=== PATIENT | female | born 1955 | race Hispanic/Latino ===

== ENCOUNTER 2018-06-08 02:58 | Inpatient (IN) | payer MEDICARE, OTHER ==
[~2018-06-08] VITALS: Ht 162.6 cm; Wt 68.0 kg
[2018-06-08] MEDS ORDERED: KETOROLAC TROMETHAMINE 30 MG/ML VIAL IV STA (03:24)
[2018-06-08 03:55] LABS: BASOPHILS % 0.2 % (0.0-1.0); EOSINOPHILS # (AUTO) 0.3 (0.0-0.4); LYMPHOCYTES # (AUTO) 1.7 (1.0-3.2); LYMPHOCYTES % 19.6 % (18.0-39.1); MEAN CORPUSCULAR HEMOGLOBIN 30.6 pg (28-32); MEAN CORPUSCULAR HGB CONC 32.4 g/dL (31-35); MEAN CORPUSCULAR VOLUME 94.4 fL (81-99); MONOCYTES # (AUTO) 0.6 (0.2-0.8); MONOCYTES % 6.7 % (4.4-11.3); NEUTROPHILS # (AUTO) 5.9 (2.1-6.9); NEUTROPHILS % 70.1 % (38.7-80.0); PLATELET COUNT 255 x10e3/uL (140-360); RED CELL DISTRIBUTION WIDTH 17.8 % (11.7-14.4)
[2018-06-08] MEDS ORDERED: METOPROLOL TART25 MG PO (03:58)
[2018-06-08] MEDS ORDERED: CLOPIDOGREL75 MG PO (03:58)
[2018-06-08] MEDS ORDERED: SERTRALINE HCL50 MG PO (03:59)
[2018-06-08 04:04] LABS: INR 1.19; PARTIAL THROMBOPLASTIN TIME 32.3 seconds (23.8-35.5); PROTHROMBIN TIME 14.2 seconds (11.9-14.5)
[2018-06-08 04:12] LABS: ALBUMIN 3.1 g/dL (3.5-5.0); ALBUMIN/GLOBULIN RATIO 0.6 (0.8-2.0); ANION GAP 25.7 mmol/L (8-16); CALCIUM 8.3 mg/dL (8.4-10.2); CREATININE, SERUM 7.38 mg/dL (0.57-1.11); MAGNESIUM 2.3 MG/DL (1.3-2.1)
[2018-06-08 04:13] LABS: POTASSIUM 5.7 mmol/L (3.5-5.1)
[2018-06-08 04:19] LABS: CREATINE KINASE MB 3.2 ng/mL (0-5.0)
[2018-06-08 04:20] LABS: B-TYPE NATRIURETIC PEPTIDE2 2811.7 pg/mL (0-100)
--- NOTE | 2018-06-08 04:22 | Diagnostic Imaging Report ---
History: Neck pain, weakness, no known trauma Comparison studies: None Technique: Axial images were obtained through the cervical region.. Coronal and sagittal images reconstructed from the axial data.. Intravenous contrast: None Findings: Fractures: None. Soft tissues: No gross abnormalities. Atlantoaxial articulation: Intact. Alignment: Straightening of the usual lordosis is probably positional. No scoliosis. Cervicomedullary junction: No abnormalities. The foramen magnum is patent. Vertebrae: No infection or neoplasm. Disc spaces: Relatively well-preserved . Facet: Degenerated throughout the cervical region but worse on the left at C3-4, bilaterally at C4-5, left at C5-6 and right at C6-7. Spinal canal: No significant spinal canal stenosis. Foramina: Moderate stenosis on the left at C3-4, C5-6 and mild right at C6-7 due to facet and uncovertebral arthrosis. 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 Atherosclerotic calcifications in the carotid bulbs. IMPRESSION: 1. Degenerative changes of the facets, worse left at C3-4, bilaterally at C4-5, left at C5-6 and right at C6-7. 2. Moderate foraminal stenosis (left at C3-4 and bilaterally at C5-6) is due to facet and uncoarthrosis. 3. Otherwise, no additional significant abnormalities. 4. No significant spinal canal stenosis. No disc herniations. Signed by: Dr. Greg Veras M.D. on 06/08/2018 4:18 AM
--- NOTE | 2018-06-08 04:28 | Diagnostic Imaging Report ---
EXAM: CHEST 2 VIEWS, PA and lateral INDICATION: Weakness, shortness of breath COMPARISON: None FINDINGS: LINES/TUBES: None LUNGS: Diffuse bilateral pulmonary edema. PLEURA: Trace bilateral pleural effusions. HEART AND MEDIASTINUM: Obscured BONES AND SOFT TISSUES: No acute findings. IMPRESSION: Diffuse bilateral pulmonary edema. Signed by: Dr. Nora Collins M.D. on 06/08/2018 4:25 AM
[2018-06-08] MEDS ORDERED: PANTOPRAZOLE 40 MG 10ML VIAL IV STA (04:42)
[2018-06-08] MEDS ORDERED: NITROGLYCERIN 2% OINT 1 GM PKT TOP ONE (04:45)
[2018-06-08] MEDS ORDERED: FUROSEMIDE INJ 10 MG/ML 4 ML VIAL IV ONE (04:45)
[2018-06-08] MEDS ORDERED: MORPHINE SULFATE 2 MG/ML SYR IV STA (05:03)
[2018-06-08] MEDS ORDERED: ONDANSETRON HCL INJ 2 MG/ML VIAL IV STA (05:03)
[2018-06-08] MEDS ORDERED: DEXTROSE 50% SYRINGE 50 ML IV PRN (05:15)
[2018-06-08] MEDS ORDERED: SOD POLYSTYRENE SULFONATE SUSP 15 GM/60 ML BTL PO ONE (05:15)
[2018-06-08] MEDS ORDERED: LACTULOSE SYRUP 20 GM/30 ML UDC PO ONE (05:15)
[2018-06-08] MEDS ORDERED: MORPHINE SULFATE 2 MG/ML SYR IV PRN ×2 (05:15→12:30)
[2018-06-08] MEDS ORDERED: HYDRALAZINE HCL 20 MG/ML VIAL IV PRN (05:15)
[2018-06-08] MEDS ORDERED: ONDANSETRON HCL INJ 2 MG/ML VIAL IV PRN ×2 (05:15→12:30)
[2018-06-08] MEDS ORDERED: HYDRALAZINE HCL 20 MG/ML VIAL IV STA ×2 (05:23→05:25)
[2018-06-08 05:28] LABS: AMYLASE 113 U/L (25-125); LIPASE 68 U/L (8-78)
[2018-06-08] MEDS ORDERED: NITROGLYCERIN 2% OINT 1 GM PKT TOP SCH (06:00)
[2018-06-08 06:09] LABS: ABG HCO3 24 mmol/L (23-28); ABG PCO2 37 mmHg (41-51); ABG PH 7.39 (7.31-7.41); ABG PO2 206 mmHg (80-105)
[2018-06-08] MEDS ORDERED: DEXTROSE 50% SYRINGE 50 ML IV STA (06:21)
[2018-06-08] MEDS ORDERED: INSULIN REGULAR, HUMAN 100 UNIT/1 ML 3ML VIAL IV STA (06:21)
[2018-06-08] MEDS: INSULIN REGULAR, HUMAN 100 UNIT/1 ML 3ML VIAL SQ SCH ×4 (07:33→20:15)
[2018-06-08] MEDS ORDERED: NITROGLYCERIN 2% OINT 1 GM PKT ONE (11:50)
[2018-06-08 11:53] LABS: CREATINE KINASE MB 3.1 ng/mL (0-5.0)
[2018-06-08 15:00] VITALS: BP 168/71
[2018-06-08 15:19] VITALS: BP 176/78
[2018-06-08 16:13] VITALS: BP 176/78
[2018-06-08] MEDS: METOPROLOL TARTRATE 25 MG TAB PO SCH (17:38)
[2018-06-08] MEDS: NITROGLYCERIN 2% OINT 1 GM PKT TOP SCH ×2 (17:39→23:54)
[2018-06-08 19:48] LABS: CREATINE KINASE MB 2.1 ng/mL (0-5.0)
[2018-06-08 20:17] VITALS: BP 160/78
[2018-06-08 20:20] VITALS: BP 160/78
--- NOTE | 2018-06-08 21:12 | Consultation ---
DATE OF CONSULTATION: June 08, 2018 PULMONARY/CRITICAL CARE CONSULTATION CHIEF COMPLAINT: Pulmonary edema and dyspnea in the setting of renal failure. HISTORY OF PRESENT ILLNESS: The patient is a 62-year-old woman. She has a history of renal failure. Apparently, she missed dialysis and started having more difficulty breathing. She subsequently came to the emergency department, and was found to have an elevated potassium along pulmonary edema. She required BiPAP and emergent dialysis. After receiving the BiPAP and dialysis, she felt better. She has now been switched back to a nasal cannula. PAST MEDICAL HISTORY 1. End-stage renal disease. 2. Hypertension. 3. Diabetes. PAST SURGICAL HISTORY: Status post placement of an AV fistula. SOCIAL HISTORY: The patient never smoked. She is not using any drugs or alcohol. FAMILY HISTORY: Noncontributory. REVIEW OF SYSTEMS: She has no fever or headache. She is not having any neck pain. There is no chest pain. She did have trouble breathing, but has improved. She is not having abdominal pain. There is no nausea or vomiting. She has no leg edema. PHYSICAL EXAMINATION VITALS: The patient is afebrile. The blood pressure is 147/68. She is afebrile. HEENT: Shows no facial swelling or erythema. The nasal mucosa is normal. The oropharynx is normal. LYMPHATIC: Shows no submandibular, cervical or supraclavicular adenopathy. CARDIAC: Reveals a regular rate and rhythm with a normal S1 and S2. There are no murmurs or rubs. LUNGS: Auscultation of the lungs reveals crackles in both lung joe. There is no wheezing. ABDOMEN: Soft and nontender. There is no rebound or guarding. EXTREMITIES: Shows no leg edema or calf tenderness. There is no cyanosis or clubbing. SKIN: Shows no rashes. NEUROLOGIC: Shows no focal abnormalities. IMPRESSION 1. Acute respiratory failure secondary to pulmonary edema. 2. End-stage renal disease with acute exacerbation due to missed dialysis. PLAN 1. Place the patient back on oxygen. 2. Advance diet. 3. Physical therapy. 4. Resume dialysis as required by nephrology. Job#: [id number] [place]
[2018-06-09] VITALS (8 sets, daily range): BP systolic 149–181; BP diastolic 66–84
--- NOTE | 2018-06-09 03:01 | Consultation ---
DATE OF CONSULTATION: June 08, 2018 Seen in the emergency room. Ms. Hagan is known to the nephrology service. She is a 62-year-old female with an underlying history of end-stage renal disease, hypertension, type 2 diabetes. She missed her dialysis. Presented with shortness of breath and she had some chest pains as well. Initial blood pressure is in the 200s. Dr. Zambrano managed the blood upper with nitropaste! I suggested some hydralazine IV and Kayexalate, but before they could even give Kayexalate, the patient developed further respiratory distress and had to be placed on BiPAP. Dialysis nurse currently at bedside and about to initiate dialysis. Patient on BiPAP, but comfortable. Does not appear to be in any dyspnea. She does appear weak and tired. She shakes her head no to any chest pain, difficulty breathing, fever, or chills. Labs show potassium 5.7, bicarbonate 19, creatinine 7.38 with a BNP of 2811. White count 8.4, hemoglobin 11. Had a blood gas done of 7.39/206/100% FIO2. MEDICATIONS: Patient received 1 dose of Toradol. She is on regular insulin. She is on nitropaste 1-inch q.6 h., morphine p.r.n., lactulose p.r.n. Received 1 dose of Lasix. Received 1 dose of hydralazine 20 mg IV. PHYSICAL EXAMINATION GENERAL: Patient on BiPAP and laying supine. Tachypneic but no dyspnea. VITALS: Has a blood pressure of 177/77, pulse rate 76, afebrile, oxygen saturation 98% on BiPAP. HEAD AND NECK: Conjunctivae appears slightly pale. Oral mucosa could not be examined because of BiPAP. Neck veins are distended. LUNGS: Shows rales in the right lower zone more than the left, but definitely bibasilar. HEART: A 2-3/6 ejection systolic murmur heard over the left sternal border. No rubs or gallop. ABDOMEN: Otherwise soft and nontender. LOWER EXTREMITY: No edema. IMPRESSION AND PLAN 1. Hyperkalemia. 2. Metabolic acidosis. 3. Fluid overload. 4. Congestive heart failure. 5. Relative noncompliance. 6. High risk dialysis and patient has missed dialysis. Dialysis nurse at bedside. 7. Accelerated hypertension. PLAN: Patient will be started on dialysis within the next few minutes. Aim is to ultrafilter as safely as possible 4-5 L. She will be on a 2K, 40 bicarb bath. Please see orders. Job#: [id number] [place]
[2018-06-09] MEDS: HYDRALAZINE HCL 20 MG/ML VIAL IV PRN (04:38)
[2018-06-09 05:18] LABS: BASOPHILS % 0.3 % (0.0-1.0); EOSINOPHILS # (AUTO) 0.2 (0.0-0.4); EOSINOPHILS % 3.1 % (0.0-6.0); HEMATOCRIT 29.8 % (34.2-44.1); HEMOGLOBIN 9.4 g/dL (12.0-16.0); LYMPHOCYTES # (AUTO) 1.2 (1.0-3.2); LYMPHOCYTES % 19.7 % (18.0-39.1); MEAN CORPUSCULAR HEMOGLOBIN 30.4 pg (28-32); MEAN CORPUSCULAR HGB CONC 31.5 g/dL (31-35); MEAN CORPUSCULAR VOLUME 96.4 fL (81-99); MONOCYTES # (AUTO) 0.5 (0.2-0.8); MONOCYTES % 8.4 % (4.4-11.3); NEUTROPHILS # (AUTO) 4.2 (2.1-6.9); NEUTROPHILS % 68.3 % (38.7-80.0); PLATELET COUNT 195 x10e3/uL (140-360); RED BLOOD COUNT 3.09 x10e6/uL (3.6-5.1)
[2018-06-09] MEDS: NITROGLYCERIN 2% OINT 1 GM PKT TOP SCH ×3 (05:25→18:00)
[2018-06-09 05:38] LABS: ALBUMIN 2.5 g/dL (3.5-5.0); ALBUMIN/GLOBULIN RATIO 0.6 (0.8-2.0); ANION GAP 18.1 mmol/L (8-16); CALCIUM 8.3 mg/dL (8.4-10.2); CHOL/HDL RATIO 2.8 (3.0-3.6); CREATININE, SERUM 4.45 mg/dL (0.57-1.11); POTASSIUM 5.1 mmol/L (3.5-5.1)
[2018-06-09] MEDS: INSULIN REGULAR, HUMAN 100 UNIT/1 ML 3ML VIAL SQ SCH ×5 (07:30→20:00)
[2018-06-09] MEDS: CLOPIDOGREL BISULFATE 75 MG TAB PO SCH (09:25)
[2018-06-09] MEDS: SERTRALINE HCL 50 MG TAB PO SCH (09:25)
[2018-06-09] MEDS: METOPROLOL TARTRATE 25 MG TAB PO SCH ×2 (09:25→17:30)
[2018-06-09] MEDS: AMLODIPINE BESYLATE 10 MG TAB PO SCH (12:36)
[2018-06-10 00:26] VITALS: BP 165/70
[2018-06-10] MEDS: HYDRALAZINE HCL 20 MG/ML VIAL IV PRN (04:04)
[2018-06-10 05:15] VITALS: BP 178/80
[2018-06-10 05:45] VITALS: BP 171/74
[2018-06-10] MEDS: NITROGLYCERIN 2% OINT 1 GM PKT TOP SCH ×3 (05:45→12:00)
[2018-06-10 06:12] LABS: ANION GAP 20.4 mmol/L (8-16); CREATININE, SERUM 5.84 mg/dL (0.57-1.11); POTASSIUM 5.4 mmol/L (3.5-5.1)
[2018-06-10 06:14] LABS: BASOPHILS % 0.5 % (0.0-1.0); EOSINOPHILS # (AUTO) 0.3 (0.0-0.4); EOSINOPHILS % 4.7 % (0.0-6.0); HEMATOCRIT 29.9 % (34.2-44.1); HEMOGLOBIN 9.3 g/dL (12.0-16.0); LYMPHOCYTES # (AUTO) 1.4 (1.0-3.2); LYMPHOCYTES % 21.3 % (18.0-39.1); MEAN CORPUSCULAR HEMOGLOBIN 30.2 pg (28-32); MEAN CORPUSCULAR HGB CONC 31.1 g/dL (31-35); MEAN CORPUSCULAR VOLUME 97.1 fL (81-99); MONOCYTES # (AUTO) 0.6 (0.2-0.8); MONOCYTES % 8.9 % (4.4-11.3); NEUTROPHILS # (AUTO) 4.1 (2.1-6.9); NEUTROPHILS % 64.3 % (38.7-80.0); PLATELET COUNT 201 x10e3/uL (140-360); RED BLOOD COUNT 3.08 x10e6/uL (3.6-5.1)
--- NOTE | 2018-06-10 06:47 | Diagnostic Imaging Report ---
EXAM: CHEST SINGLE (PORTABLE), AP 1 view INDICATION: Pulmonary edema COMPARISON: PA and lateral view of the chest June 08, 2018 FINDINGS: LINES/TUBES: None LUNGS: Pulmonary edema, improved from prior exam. PLEURA: Small bilateral pleural effusions. HEART AND MEDIASTINUM: Cardiomegaly BONES AND SOFT TISSUES: No acute findings. IMPRESSION: Cardiomegaly, small bilateral pleural effusions and improving of pulmonary edema. Signed by: Dr. Nora Collins M.D. on 06/10/2018 6:44 AM
[2018-06-10 07:30] VITALS: BP 175/72
[2018-06-10] MEDS: INSULIN REGULAR, HUMAN 100 UNIT/1 ML 3ML VIAL SQ SCH ×2 (07:30→11:30)
[2018-06-10 07:58] VITALS: BP 175/72
[2018-06-10] MEDS: AMLODIPINE BESYLATE 10 MG TAB PO SCH (08:30)
[2018-06-10] MEDS: CLOPIDOGREL BISULFATE 75 MG TAB PO SCH (08:30)
[2018-06-10] MEDS: METOPROLOL TARTRATE 25 MG TAB PO SCH (08:30)
[2018-06-10] MEDS: SERTRALINE HCL 50 MG TAB PO SCH (08:30)
[2018-06-10] MEDS ORDERED: NORVASC10 MG PO (09:57)
[2018-06-10] MEDS ORDERED: TYLENOL # 31 EA PO (09:57)
[2018-06-10] MEDS ORDERED: SODIUM CHLORIDE 0.9% 1000ML 2,000 ML ONE (10:52)
[2018-06-10 11:33] VITALS: BP 145/67
--- NOTE | 2018-06-11 05:29 | Discharge Summary ---
ADMISSION DIAGNOSES 1. End-stage renal disease, needing dialysis. 2. Hyperkalemia. 3. Hypertension. 4. Type 2 diabetes. 5. Respiratory distress. DISCHARGE DIAGNOSES 1. End-stage renal disease, needing dialysis. 2. Hyperkalemia. 3. Hypertension. 4. Type 2 diabetes. 5. Respiratory distress. 6. Anxiety. HISTORY: Patient has a history of end-stage renal disease needing dialysis on Sunday, , and Sunday; hypertension; type 2 diabetes; and anxiety. Only surgical history is left arm AV fistula placement. HOSPITAL COURSE: A 62-year-old female complains of shortness of breath and chest pain that began last night. She skipped her dialysis on . Pain is 10/10, does not radiate and is not worsened or improved by anything. Upon admission to the ER, patient's blood pressure was in the 200s, potassium was 5.7, and patient required BiPAP secondary to pulmonary edema. Patient got dialysis in the ER and was weaned off BiPAP. Her potassium was decreased with Kayexalate in the ER. Blood pressure and anxiety were controlled with home medications. Norvasc had to be added to control the blood pressure. Patient was placed on a sliding scale for diabetes. After 2 dialysis, patient is feeling much better and is ready to go home. She will follow up with primary care and dialysis as scheduled. Patient understands discharge instructions and agrees to plan. Vital signs stable. Patient afebrile. Dictated by Rach Springer NP SHRUTI FERNANDO MD Job#: [id number] CF
== END 2018-06-10 15:23 | disposition home or self-care (01) | DRG 291 ==
LOC: ER 02:58 → ERHOLD 05:14 → UNDOADMOB 05:14 → ICU 14:00 → MED/SURG3 15:28
PROVIDERS: ADMIT Internal Medicine; ATTEND Internal Medicine
PROC: 5A1D70Z Performance of Urinary Filtration, Intermittent, Less than 6 Hours Per Day (ICD-10-PCS; principal; 2018-06-08)
PROC: 5A09357 Assistance with Respiratory Ventilation, Less than 24 Consecutive Hours, Continuous Positive Airway Pressure (ICD-10-PCS; 2018-06-08)
DX: I13.2 Hypertensive heart and chronic kidney disease with heart failure and with stage 5 chronic kidney disease, or end stage renal disease (principal); J96.00 Acute respiratory failure, unspecified whether with hypoxia or hypercapnia; N18.6 End stage renal disease; E87.2 Acidosis; T87.43 Infection of amputation stump, right lower extremity; E11.22 Type 2 diabetes mellitus with diabetic chronic kidney disease; I50.9 Heart failure, unspecified; Z99.2 Dependence on renal dialysis; Z91.15 Patient's noncompliance with renal dialysis; Z79.4 Long term (current) use of insulin; E87.5 Hyperkalemia; F41.9 Anxiety disorder, unspecified; I25.10 Atherosclerotic heart disease of native coronary artery without angina pectoris; E78.5 Hyperlipidemia, unspecified; Z79.02 Long term (current) use of antithrombotics/antiplatelets; Z88.0 Allergy status to penicillin
CPT/HCPCS: 36415; 36600; 71045; 71046; 72125; 80048; 80053; 80061; 82140; 82150; 82550; 82553; 82805; 82948; 83690; 83735; 83880; 84484; 85025; 85610; 85730; 86704; 86707; 87071; 87075; 87186; 87205; 87340; 90962; 93005; 94660; 99285; J0360; J1885; J1940; J2270; J2405; J7030; J7799